=== PATIENT | male | born 1940 | race Caucasian/White ===

== ENCOUNTER → 2017-09-05 | Outpatient (CLI) | payer OTHER, MEDICARE ==
[2016-10-16 19:23] VITALS: BP 171/78
--- NOTE | 2017-09-05 14:04 | RAD ---
Examination: Chest, PA and lateral views History: Cough Comparison reference October 16, 2016. Findings: Continued normal heart size. There is minimal atelectasis at the right base, accentuated by relative pulmonary underinflation. No acute consolidation or pleural fluid is demonstrated. There is a stable calcified granuloma in the left lower lung. Impression: Mild right basal atelectasis accentuated by incomplete inspiration. Reported By:
== END ==
LOC: RAD 11:23
PROVIDERS: ATTEND Physician Assistant Medical
DX: R05 Cough (principal); J98.11 Atelectasis
CPT/HCPCS: 71046

== ENCOUNTER 2017-12-03 14:16 | Emergency (ER) | payer OTHER, MEDICARE ==
[2017-12-03 14:23] VITALS: BMI 26.2
[2017-12-03] MEDS ORDERED: CATAPRES TAB 0.1 MG PO ONE (15:31)
[2017-12-03] MEDS ORDERED: CATAPRES TAB 0.1 MG ONE (15:33)
--- NOTE | 2017-12-03 15:33 | DR.GENAD ---
HPI - PCP Primary Care Physician: Geovanna [facility] - Complaint/Symptoms Chief Complaint Doctors Comments: History as stated. Chief Complaint:: PT STATED HE HAS BEEN HAVING HIGH BLOOD PRESSURE FOR ABOUT 2 WEEKS. CALLED HIS DOCTOR TODAY AND THEY WERE CLOSED. HAS A APPOINTMENT NEXT WEEK TO SEE HIS DOCTOR Self Treatment fo Chief Complaint: PTS GAVE HIM A CLONIDINE - Source History Provided: Patient - Mode of Arrival Mode of Arrival: Ambulatory - Timing Onset of Chief Complaint: 11/19/17 PMH - PMH Past Medical History: Yes Past Medical History: Dementia, Dyslipidemia, Hypertension Past Surgical History: Yes Surgical History: Angioplasty/Stents - Family History History of Family Medical Conditions: Yes Family Medical History: Cancer, [place], Coronary Artery Disease, Heart Failure - Social History Does patient currently use any type of tobacco product: No Have you used tobacco products in the last 12 months: No Type of Tobacco Use: None Does any household member use tobacco: No Alcohol Use: None Do you use any recreational Drugs:: No Lives With: Family Lives Where: Home - infectious screening In the last 2 months have you had wt loss of >10#?: NO Have you had fever, night sweats or hemotysis?: No Have you traveled outside the country in the last 6 months?: No Isolation: Standard ROS - Review of Systems Eyes: No Symptoms Reported ENTM: No Symptoms Reported Respiratoy: No Symptoms Reported Cardiovascular: No Symptoms Reported Gastrointestinal/Abdominal: No Symptoms Reported Genitourinary: No Symptoms Reported Neurological: No Symptoms Reported Musculoskeletal: No Symptoms Reported Integumentary: No Symptoms Reported Hematologic/Lymphatic: No Symptoms Reported Endocrine: No Symptoms Reported Psychiatric: No Symptoms Reported All Other Systems: Reviewed and Negative PE - Vital Signs Vitals: Temperature 98.2 F Pulse Rate 68 Respiratory Rate 16 Blood Pressure [Left Arm] 158/78 Blood Pressure 171/76 O2 Sat by Pulse Oximetry 97 - General Limitations: Physical Limitation General Appearance: Alert, In No Apparent Distress - Head Head Exam: Normal Inspection, Atraumatic - Eyes Eye exam: Normal Appearance, PERRL, EOMI - ENT ENT Exam: Normal Exam External Ear Exam: Normal External Inspection TM/Canal Exam: Bilateral Normal Nose Exam: Normal Nose Exam Mouth Exam: Normal Inspection Throat Exam: Normal Inspection - Neck Neck Exam: Normal Inspection, Full ROM - Chest Chest Inspection: Normal Inspection - Respiratory Respiratory Exam: Normal Lung Sounds Bilat Respiratory Exam: Bilateral Clear to Auscultation - Cardiovascular Cardiovascular Exam: Regular Rate, Normal Rhythm - Abdominal Exam Abdominal Exam: Normal Inspection Abdominal Tenderness: negative: RUQ, RLQ, LUQ, LLQ, Epigastrium, Suprapubic, Diffuse, Mild, Moderate, Severe, Other - Extremities Extremities Exam: Normal Inspection, Full ROM - Back Back Exam: Normal Inspection - Neurologic Neurological Exam: Alert, Oriented X3, CN II-XII Intact - Psychiatric Psychiatric Exam: Normal Affect, Normal Mood - Skin Skin Exam: Warm, Dry, Intact Course - Treatment Treatment: clonidine 0.1mg for BP systolic 171. Patient has appointment primary care physician next week. Will cover with clonidine 0.1mg for elevated BP. He has been using spouses medication of clonidine - Reevaluation 1st: Improved - Education/Counseling Educated On: Treatment, Diagnosis, Prognosis, Needs for Follow Up - Diagnosis Discharge Problem: Hypertension Qualifiers: Hypertension type: unspecified Qualified Code(s): I10 - Essential (primary) hypertension - Discharge Plan Condition: Stable - Follow ups/Referrals Follow ups/Referrals: TAL SHELTON [Primary Care Provider] - 3 days - Instructions
[2017-12-03 16:37] VITALS: BP 158/78
== END 2017-12-03 16:57 | disposition home or self-care (01) ==
LOC: ER 14:27
DX: I10 Essential (primary) hypertension (principal)
CPT/HCPCS: 99282